=== PATIENT | female | born 1995 | race Caucasian/White ===

== ENCOUNTER 2024-10-12 18:50 | Emergency (ER) | payer BC, OTHER ==
[~2024-10-12] VITALS: Ht 165.1 cm; Wt 113.4 kg
[2024-10-12 19:29] LABS: BASOPHILS % 0.3 % (0.0-1.0); EOSINOPHILS % 4.5 % (0.0-6.0); LYMPHOCYTES % 25.2 % (18.0-39.1); MONOCYTES % 4.5 % (4.4-11.3); NEUTROPHILS % 64.3 % (38.7-80.0); RED CELL DISTRIBUTION WIDTH 14.1 % (11.7-14.4)
[2024-10-12 19:32] LABS: LEUKOCYTE ESTERASE ,URINE NEGATIVE (NEGATIVE); PROTEIN,URINE DIPSTICK NEGATIVE (NEGATIVE); URINE UROBILINOGEN 1 mg/dL (0.2 - 1)
[2024-10-12 19:38] LABS: PREGNANCY TEST, URINE NEGATIVE (NEGATIVE)
[2024-10-12 19:47] LABS: EPITHELIAL CELLS,URINE MODERATE /LPF
[2024-10-12 19:55] LABS: EST GLOMERULAR FILTRATION RATE 102.0 ML/MIN (>=60)
[2024-10-12] MEDS: KETOROLAC TROMETHAMINE 30 MG/ML VIAL IV STA (19:57)
[2024-10-12 21:32] VITALS: PULSE 88; RESP 16; TEMP 98.1; O2SAT 99
== END 2024-10-12 21:37 | disposition home or self-care (01) ==
LOC: ER 19:43
DX: R07.89 Other chest pain (principal); F41.9 Anxiety disorder, unspecified; F44.9 Dissociative and conversion disorder, unspecified; F17.210 Nicotine dependence, cigarettes, uncomplicated
CPT/HCPCS: 36415; 71045; 80053; 81001; 81025; 82550; 84484; 85025; 85379; 93005; 99284; J1885